=== PATIENT | male | born 1970 | race Caucasian/White ===

== ENCOUNTER 2021-11-30 20:03 | Emergency (ER) | payer OTHER ==
[2021-11-30] MEDS: Bacitracin Oint 1 GM U/D Packet TOP ONE (20:38)
[2021-11-30] MEDS: Diphtheria,Pertussis(Acell),Tetanus Vaccine 0.5 ML Syringe IM ONE (20:39)
[2021-11-30] MEDS: Lidocaine 1% 5 ML VIAL INJECT ONE (20:39)
== END 2021-11-30 21:05 | disposition home or self-care (01) ==
LOC: JP.ED 20:03
DX: S61.012A Laceration without foreign body of left thumb without damage to nail, initial encounter (principal); Z23 Encounter for immunization; W26.8XXA Contact with other sharp object(s), not elsewhere classified, initial encounter
CPT/HCPCS: 12001; 90471; 90715; 99282-25